=== PATIENT | male | born 1960 | race Caucasian/White ===

== ENCOUNTER 2018-02-27 17:44 | Emergency (ER) | payer OTHER ==
[~2018-02-27] VITALS: Ht 177.8 cm; Wt 99.8 kg
[2018-02-27] MEDS ORDERED: LISINOPRIL20 MG PO (17:51)
[2018-02-27] MEDS ORDERED: TRADJENTA5 MG (17:51)
[2018-02-27] MEDS ORDERED: ASPIR 8181 MG PO (17:51)
[2018-02-27] MEDS ORDERED: OMEPRAZOLE20 M2 PO (17:51)
[2018-02-27] MEDS ORDERED: ATORVASTATIN CA40 MG PO (17:51)
[2018-02-27] MEDS ORDERED: FLOMAX0.4 MG PO (17:52)
[2018-02-27] MEDS ORDERED: IBUPROFEN 800800 M1 PO (18:14)
[2018-02-27] MEDS ORDERED: KEFLEX500 M1 PO (18:14)
[2018-02-27 18:33] VITALS: BP 142/73
== END 2018-02-27 18:34 | disposition home or self-care (01) ==
LOC: M.ERS 17:44
DX: S01.81XA Laceration without foreign body of other part of head, initial encounter (principal); E11.9 Type 2 diabetes mellitus without complications; Z95.5 Presence of coronary angioplasty implant and graft; Z85.528 Personal history of other malignant neoplasm of kidney; W22.8XXA Striking against or struck by other objects, initial encounter; Y93.89 Activity, other specified; Y92.89 Other specified places as the place of occurrence of the external cause; Y99.8 Other external cause status